=== PATIENT | male | born 1975 ===

== ENCOUNTER 2025-03-19 08:58 | Outpatient (AMB) | payer OTHER, SELFPAY ==
[2025-03-19 09:05] VITALS: BP 104/70; PULSE 70; O2SAT 96; BMI 32.9
--- NOTE | 2025-03-19 09:05 | MHC.OFFVIS ---
Vital Signs 03/19/25 09:05 Height 6 ft 3 in Weight 263 lb 0.183 oz BMI 32.9 BP 104/70 Blood Pressure Location Lt brachial Position Sitting Pulse 70 Pulse Source Pulse Oximeter Pulse Oximetry (%) 96 Oxygen Delivery Method Room Air Intake Visit Reasons: Low TSH Intake Note: NEW Patient presents today to establish care for Low TSH: Gas Substation Operator Required: No Accompanied by: Self / Same As Patient Allergies topiramate Allergy (Mild, Verified 03/19/25 09:09) Unknown Medication List - Last Reconciled 03/19/25 by Mumtaz Moran MD oxycodone 15 mg PO TID PRN pramipexole mg PO sildenafil mg PO testosterone (Testopel) mg implant tizanidine 4 mg PO BID HPI Comments Details: The patient is a 49 years old male with a history of low testosterone, depression, low back pain, and seasonal allergies, reported feeling unwell with symptoms of low motivation, low libido, and some weight gain in the past for which she was diagnosed with hypogonadism. He was started on Testopel (testosterone pellets), last inserted a couple of weeks ago by urology. During initial workup, the patient's TSH was normal low 2 occasions, and the patient is referred to us for evaluation. The patient denies experiencing heat intolerance, palpitations, tremors, anxiety, diarrhea, or unexpected weight loss. There is no family history of thyroid disease. The patient does not recall any recent illnesses or stressors that could have precipitated the symptoms. Occasional dizziness and blurred vision have been noted, but there are no significant headaches. Physical exam General: Well appearing. Neck/Thyroid: Thyroid not enlarged, no nodules. Eyes: No conjunctival injection, not lid lag or proptosis CV: RRR, no murmur. No edema. Resp:Lungs clear to auscultation bilaterally Abdomen: Soft, nontender. nondistended Extremities/Neuro: No weakness or tremor of outstretched hands Labs PFSH Medical History (Updated 03/19/25 @ 09:34 by Mumtaz Moran MD) Hx of allergic rhinitis Hx-hypospadias History of foot sprain History of depression Hx of insomnia Hx of low back pain Hx of seasonal allergies Hx of cardiac murmur Surgical History (Updated 03/19/25 @ 09:11 by WILLIAM Burnett) H/O foot surgery History of knee surgery History of hip surgery Family History (Updated 03/19/25 @ 09:11 by WILLIAM Burnett) Mother No problems noted. Father Diabetes Social History (Updated 03/19/25 @ 09:12 by WILLIAM Burnett) Alcohol intake: current Alcohol intake frequency: holidays/special occasions only Patient Tobacco Use Status: Current everyday Tobacco user Physical Exam Vital Signs: Last Vital Signs Pulse 70 03/19/25 09:05 BP 104/70 03/19/25 09:05 Pulse Ox 96 03/19/25 09:05 Oxygen Delivery Method Room Air 03/19/25 09:05 BMI result Body Mass Index 32.9 Assessment & Plan Assessment & Plan (1) Abnormal thyroid function test: Code(s): R94.6 - Abnormal results of thyroid function studies Category: Medical Plan: Abnormal thyroid function tests Patient has not had true abnormal thyroid function tests, he does have borderline normal TSH, other it is not a free T4 for reference. Patient does not seem to have any symptoms concerning for hyper or hypothyroidism at the time of my encounter or before per review of symptoms. Discussed with the patient the physiology of thyroid function, emphasizing on the symptoms for hyper or hypothyroidism Discussed with the patient rationale for repeating thyroid function tests including free T4 Advised the patient to monitor for symptoms of hypothyroidism (2) Hypogonadism in male: Code(s): E29.1 - Testicular hypofunction Category: Medical Plan Hypogonadism Unclear etiology for hypogonadism Labs seen on documents sent from primary care were normal, but patient was already started on testosterone pellets by Urology. He currently does not seem to have any symptoms concerning for hypogonadism Given the history of borderline low TSH and hypogonadism, we will add FSH and LH to rule out pituitary disease. Advised the patient that the best time for obtaining a physician and lays is at the end of the life of the pellets as decreased testosterone we will normally will lead to a feedback elevation of FSH and LH. Orders: Orders Follicle Stimulating Hormone Today E29.1 - Testicular hypofunction, R94.6 - Abnormal results of thyroid function studies Lutenizing Hormone Today E29.1 - Testicular hypofunction, R94.6 - Abnormal results of thyroid function studies TSH reflex Free T4 Today E29.1 - Testicular hypofunction, R94.6 - Abnormal results of thyroid function studies Coding Level of Care Code New Pt Level 4 (86933) Diagnoses Abnormal thyroid function test R94.6 Hypogonadism in male E29.1 Time Spent (min) 45 Comment Time spent on review of previous records, history, exam/plan and patient education.
--- OUTSIDE RECORDS SUMMARY | 2025-03-19 09:33 | XMS_ITS | Clinical Summary ---
Author Organization [facility] [address] [facility] Address [address] [place] [address] Phone Care Team Providers Care Television Host Name Role Phone Anug Singh NP Primary Care Provider [phone] Social History Tobacco Use Types Packs/Day Years Used Date Smoking Tobacco: Never Assessed Sex and Gender Information Value Date Recorded Sex Assigned at Not on file Legal Sex Male 11:06 AM EST Gender Identity Not on file Sexual Orientation Not on file Plan of Treatment Health Maintenance Due Date Last Done Comments DTaP,Tdap,and Td Vaccines (1 - Tdap) 1993 Hepatitis B Vaccines (1 of 3 - 19+ 3-dose series) 1993 Depression Screening 06/20/2024 Cholesterol Screening (Lipid Panel) 06/28/2024 Colorectal Cancer Screening: Colonoscopy 06/28/2024 HIV Screening 06/28/2024 Hepatitis C Screening 06/28/2024 Social Influencers of Health Screening 06/28/2024 Pneumococcal Vaccine: 50+ Ye ars (1 of 1 - PCV) 2024 Zoster Vaccines (1 of 2) 2024 COVID-19 Vaccine ( - 2023-2 5 season) 2025 Influenza Vaccine (#1) 2025 HIB Vaccines Aged Out No longer eligi ble based on patient's age to complete this topic HPV Vaccines Aged Out No longer eligi ble based on patient's age to complete this topic Hepatitis A Vaccines Aged Out No long er eligible based on patient's age to complete this topic IPV Vaccines Aged Out No longer eligi ble based on patient's age to complete this topic MMR Vaccines Aged Out No longer eligi ble based on patient's age to complete this topic Meningococcal ACWY Vaccine Aged Out N o longer eligible based on patient's age to complete this topic Meningococcal B Vaccine Aged Out No l onger eligible based on patient's age to complete this topic RSV Immunization Patients Un tasha 20 months Aged Out No longer eligible b ased on patient's age to complete this topic Varicella Vaccines Aged Out No longer eligible based on patient's age to complete this topic Insurance [facility] Care Teams Television Host Relationship Specialty Start Date End Date Aung Singh NP [address] [place], [place] PCP - General Nurse Practitioner 06/28/24
--- OUTSIDE RECORDS SUMMARY | 2025-03-19 09:33 | XMS_ITS | Encounter Summary ---
Author Organization [facility] Address [address] [place] [address] Care Team Providers Care Manager Therapy Name Role Phone Rory Singhjeri RABAGO Primary Care Provider [phone] Encounter Details Date Type Department Care Team (Late st Contact Info) Description 11/09/2024 Lab Requisition [facility] - Main Lab [address] [facility] [place] [address] Ward Hall MD [address] [place] [address] Testicular hypofunction Social History Tobacco Use Types Packs/Day Years Used Date Smoking Tobacco: Never Assessed Sex and Gender Information Value Date Recorded Sex Assigned at Not on file Legal Sex Male 11:06 AM EST Gender Identity Not on file Sexual Orientation Not on file documented as of this encounter Plan of Treatment Not on file documented as of this encounter Procedures Procedure Name Priority Date/Time Associated Diagnosis Comments TESTOSTERONE FREE, BIOAVAILABLE AND TOTAL Routine 11/09/2024 9:22 AM EDT Testicular hypofunction documented in this encounter Results * Testosterone free, bioavailable and total (11/09/2024 9:22 AM EDT) Testosterone 486 229 - 902 ng/dL LAB CHEMISTRY METHOD 11/09/2024 2:[address] [facility] Testosterone, Free 6.6 4.6 - 22.4 ng/dL LAB CHEMISTRY METHOD 11/09/2024 2:[address] [facility] Testosterone, Bioavailable 158 110 - 575 ng/dL LAB CHEMISTRY METHOD 11/09/2024 2:[address] [facility] Sex Hormone Binding 60.6 See Comment nmol/L LAB CHEMISTRY METHOD 11/09/2024 2:[address] [facility] Comment: FEMALES: pre-menopausal 10.8 - >180 post-menopausal 23.2 - 159.1 MALES: 21-49 years 14.6 - 94.6 50-89 years 21.6 - 113.1 CHILDREN: No established reference range Over the counter supplements containing high doses of biotin may interfere with this assay. If interference is suspected, patients should be retested after refraining from biotin supplements for 72 hours. Albumin 4.4 3.2 - 5.0 g/dL LAB CHEMISTRY METHOD 11/09/2024 2:[address] [facility] Blood Venous blood specimen / Unknown 11/09/2024 9:22 AM EDT 11/09/2024 11:38 AM EDT us Ward Hall MD LAB BLOOD ORDERABLES Final Resu lt [facility] [address] [place] [address], documented in this encounter Visit Diagnoses Diagnosis Testicular hypofunction Other testicular hypofunction documented in this encounter Care Teams Manager Therapy Relationship Specialty Start Date End Date Aung Singh NP [address] [place] [address] [address] [place], [place] PCP - General Nurse Practitioner 06/28/24 documented as of this encounter
--- OUTSIDE RECORDS SUMMARY | 2025-03-19 09:33 | XMS_ITS | Encounter Summary ---
Author Organization [facility] Address [address] [place] [address] Care Team Providers Care Paint Roller Covers Supervisor Name Role Phone Francisco Aung RABAGO Primary Care Provider [phone] Encounter Details Date Type Department Care Team (Late st Contact Info) Description 11/08/2024 Lab Requisition [facility] - Main Lab [address] [facility] [employer] [address] Ward Hall MD [address] [place] [address] Testicular hypofunction Social History Tobacco [...] Procedure Name Priority Date/Time Associated Diagnosis Comments COMPLETE BLOOD COUNT Routine 11/08/2024 9:22 AM EDT Testicular hypofunction documented in this encounter Results * (ABNORMAL) Complete blood count (11/08/2024 9:22 AM EDT) WBC 5.8 4.8 - 10.8 K[facility] LAB HEMETOLOGY METHOD 11/08/2024 1:[address] [facility] RBC 5.90(H) 4.50 - 5.50 M/[facility] LAB HEMETOLOGY METHOD 11/08/2024 1:[address] [facility] Hemoglobin 18.4(H) 13.5 - 17.5 g/dL LAB HEMETOLOGY METHOD 11/08/2024 1:[address] [facility] Hematocrit 53.8 42.0 - 54.0 % LAB HEMETOLOGY METHOD 11/08/2024 1:[address] [facility] MCV 91.3 79.0 - 98.0 FL LAB HEMETOLOGY METHOD 11/08/2024 1:[address] [facility] MCH 31.2 27.0 - 32.0 pcg LAB HEMETOLOGY METHOD 11/08/2024 1:[address] [facility] MCHC 34.2 32.0 - 37.0 g/dL LAB HEMETOLOGY METHOD [facility] RDW 12.6 11.0 - 15.0 % LAB HEMETOLOGY METHOD 11/08/2024 1:[address] [facility] Platelets 178 130 - 400 K/mcL LAB HEMETOLOGY METHOD 11/08/2024 1:[address] [facility] MPV 10.2 7.0 - 11.0 FL LAB HEMETOLOGY METHOD [facility] NRBC 0.0 <1.0 % LAB HEMETOLOGY METHOD 11/08/2024 1:[address] [facility] NRBC Absolute 0.00 <0.10 K/mcL LAB HEMETOLOGY METHOD 11[facility]08[facility] Blood Venous blood specimen / Unknown 11/08/2024 9:22 AM EDT 11/08/2024 12:55 PM EDT us Ward Hall MD LAB BLOOD ORDERABLES Final Resu lt [facility] [address] [place] [address], documented in this encounter Visit Diagnoses Diagnosis Testicular hypofunction Other testicular hypofunction documented in this encounter Care Teams Paint Roller Covers Supervisor Relationship Specialty Start Date End Date Aung Singh NP [address] [place] [address] Rd [address] [place], [place] PCP - General Nurse Practitioner 06/28/24 documented as of this encounter
--- OUTSIDE RECORDS SUMMARY | 2025-03-19 09:33 | XMS_ITS | Clinical Summary ---
Author Organization [facility] [employer] [facility] Address [address] [place] [address] Care Team Providers Care Building Consultant Name Role Phone Pcp, No Primary Care Provider [phone] Social History Tobacco Use Types Packs/Day Years Used Date Smoking Tobacco: Never Assessed Sex and Gender Information Value Date Recorded Sex Assigned at Not on file Legal Sex Male 7:38 PM EDT Gender Identity Not on file Sexual Orientation Not on file Plan of Treatment Health Maintenance Due Date Last Done Comments Colorectal Cancer: COLONOSCO PY Screening every 10 yrs (or Modifier) 1974 Depression: Screening Annual ly using PHQ-2/9 in Adults 18 yrs or above (or HM Modifier)([facility]) 1992 Hepatitis C Virus Infection in Adolescents and Adults: Screening (or Modifier) ([facility]) 1992 [facility] Screening Reminder: Belkys cobos for all adults ([facility]) 1992 Tobacco Smoking Cessation: i n Adults excluding Women: Behavioral and Pharmacotherapy Interventions ([facility]) 1992 DTaP/Tdap/Td Vaccines ([facility]) (1 - Tdap) 1993 Colorectal Cancer Screening 45 -75 Yrs (or HM Modifier ) 10/03/2019 Colorectal Cancer: FLEXIBLE SIGMOIDOSCOPY Screening every 5 yrs 10/03/2019 Colorectal Cancer: Fecal Imm unochemical Test (FIT) Annually [facility] 10/03/2019 Colorectal Cancer: High-sens itivity gFOBT Screening Annually [facility] 10/03/2019 Colorectal Cancer: Stool Col oguard Screening every 3 yrs 10/03/2019 Colorectal Cancer:CT Colonography Screening every 5 yr s 10/03/2019 Pneumococcal Vaccination Scr eening: Patients 50+ yrs of age ([facility]) (1 of 1 - PCV) 2024 Zoster/Shingles Vaccine Seri es Screening: Adults aged 18+ yrs (or HM Modifiers)([facility]) (1 of 2) 2024 Flu Vaccination: Yearly for ages 18mos through 64 years (or Modifier)([facility]) 01/18/2025 COVID-19 Vaccine Screening: Initial Series and Booster Status ([facility]) (2023- season) 2025 [employer] Not on file Insurance Care Teams Building Consultant Relationship Specialty Start Date End Date Pcp, No PCP - General Family Medicine 02/21/20
== END 2025-03-19 11:08 | disposition home or self-care (01) ==
LOC: HO.ENCR 08:59
PROVIDERS: PCP Internal Medicine; Visit Provider Student in an Organized Health Care Education/Training Program
DX: R94.6 Abnormal results of thyroid function studies (principal); E29.1 Testicular hypofunction
CPT/HCPCS: 99204

== ENCOUNTER 2025-06-11 11:30 | Outpatient (AMB) | payer OTHER, SELFPAY ==
--- OUTSIDE RECORDS SUMMARY | 2025-06-05 23:59 | XMS_ITS | Continuity of Care Document ---
Author Organization [facility] Address [address] [place] [address]- Care Team Providers Care Jigger Operator Name Role Phone Parminder PIKE, Sandro Pepe Primary Care Physician [id number] Date(s): 05/06/25 - 06/05/[address] [id number] Attending Physician: Fatou Clifton Admitting Physician: Fatou Clifton Referring Physician: Fatou Clifton Encounter Type: Triage Allergies, Adverse Reactions, Alerts No Known Medication Allergies Immunizations Given and Recorded Vaccine Date Status Refusal Reason tetanus/diphtheria/pertussis, acel(Tdap) 04/14/24 Given Medications Celecoxib By Mouth, 2 times a day, 0 Refills, Maintenance, 03/11/18 4:51:52 PM EDT Start Date: 03/11/18 Status: Ordered Medication Dispense Status: Completed Total Allowed Fills: 1 Fills Dispensed: 0 Famciclovir By Mouth, 0 Refills, Maintenance, 03/11/18 4:51:17 PM EDT Start Date: 03/11/18 Status: Ordered Medication Dispense Status: Completed Total Allowed Fills: 1 Fills Dispensed: 0 famotidine 40 mg oral tablet 1 tablet = 40 mg, By Mouth, Daily at bedtime, # 30 tablet, 0 Refills, Maintenance, 03/11/18 6:48:06 PM EDT, Tablet Start Date: 03/11/18 Status: Ordered Medication Dispense Status: Completed Quantity: 30.0 Unit: tablet Total Allowed Fills: 1 Fills Dispensed: 0 oxyCODONE 10 mg oral tablet 1 tablet = 10 mg, By Mouth, Every 8 hours, PRN as needed for pain, 0 Refills, Maintenance, 03/11/18 4:50:28 PM EDT, Tablet Start Date: 03/11/18 Status: Ordered Medication Dispense Status: Completed Total Allowed Fills: 1 Fills Dispensed: 0 pramipexole 0.5 mg oral tablet See Instructions, takes 1-2 @ HS, 5 Refills, Maintenance, 10/01/24 11:02:00 AM EDT, Tablet, Partial fill upon patient request if the prescription is for a schedule II opioid drug. Start Date: 10/01/24 Status: Ordered Medication Dispense Status: Completed Total Allowed Fills: 1 Fills Dispensed: 0 QUEtiapine 25 mg oral tablet 25 mg, 1, tablet, By Mouth, Daily at bedtime, # 30 tablet, Refills 0, Maintenance, 10/01/24 11:02:00AM EDT, Partial fill upon patient request if the prescription is for a schedule II opioid drug. Start Date: 10/01/24 Status: Ordered Medication Dispense Status: Completed Quantity: 30.0 Unit: tablet Total Allowed Fills: 1 Fills Dispensed: 0 tiZANidine 4 mg oral capsule See Instructions, One at HS, 0 Refills, Maintenance, 10/01/24 11:03:00 AM EDT, Partial fill upon patient request if the prescription is for a schedule II opioid drug. Start Date: 10/01/24 Status: Ordered Medication Dispense Status: Completed Total Allowed Fills: 1 Fills Dispensed: 0 Problem List Condition Confirmation Course Effective Dates Status Health St atus Informant Obese class II Confirmed Active Social History Social History Type Response Smoking Status Former smoker entered on: 07/15/15 Sex Sex Representation Male (finding) Patient Care team information Care Team Personnel Name: Sandro Zurita MD Position: S Physician - Primary Care Member Role: PCP Address: [address] [place] [address], [facility] [address] Telecom: Care Team Related Persons Name: GEOVANNA DOUGLAS Insurance Providers Guarantor name: LAURENT DOUGLAS Health Plan Information #: 1 Payer: [facility] Payer Identifier: NA Member Number: [id number] Group Number: [id number] Subscriber Identifier: NA Relationship to Subscriber: self Coverage Type: NA Coverage Verification Date: NA Telecom: NA Address: NA
--- NOTE | 2025-06-11 11:34 | MHC.OFFVIS ---
Vital Signs 06/11/25 11:35 Height 6 ft 3 in Weight 250 lb BMI 31.2 BP 132/86 Blood Pressure Location Rt brachial Position Sitting Pulse 58 Pulse Source Pulse Oximeter Pulse Oximetry (%) 96 Oxygen Delivery Method Room Air Intake Visit Reasons: Abnormal thyroid function test Intake Note: Patient presents here today for a follow-up after completion of workup labs: Thyroid Function Test: Completed on 06/06/2025 at [facility] Automobile Repair Service Estimator Required: No Accompanied by: Self / Same As Patient Allergies topiramate Allergy (Mild, Verified 06/11/25 11:50) Unknown HPI Comments Details: The patient is a 49 years old male with a history of low testosterone, depression, low back pain, and seasonal allergies, reported feeling unwell with symptoms of low motivation, low libido, and some weight gain in the past for which she was diagnosed with hypogonadism. He was started on Testopel (testosterone pellets), last inserted a couple of weeks ago by urology. During initial workup, the patient's TSH was normal low 2 occasions, and the patient is referred to us for evaluation. The patient denies experiencing heat intolerance, palpitations, tremors, anxiety, diarrhea, or unexpected weight loss. There is no family history of thyroid disease. The patient does not recall any recent illnesses or stressors that could have precipitated the symptoms. Occasional dizziness and blurred vision have been noted, but there are no significant headaches. Interval history: Sporadic palpitation No other symptoms concerning for hyperthyroidism Physical exam General: Well appearing. Neck/Thyroid: Thyroid not enlarged, no nodules. Eyes: No conjunctival injection, not lid lag or proptosis CV: RRR, no murmur. No edema. Resp:Lungs clear to auscultation bilaterally Abdomen: Soft, nontender. nondistended Extremities/Neuro: No weakness or tremor of outstretched hands Labs PFSH Medical History (Updated 03/19/25 @ 09:34 by Mumtaz Moran MD) Hx of allergic rhinitis Hx-hypospadias History of foot sprain History of depression Hx of insomnia Hx of low back pain Hx of seasonal allergies Hx of cardiac murmur Surgical History (Updated 03/19/25 @ 09:11 by WILLIAM Burnett) H/O foot surgery History of knee surgery History of hip surgery Family History (Updated 03/19/25 @ 09:11 by WILLIAM Burnett) Mother No problems noted. Father Diabetes Social History (Updated 03/19/25 @ 09:12 by WILLIAM Burnett) Alcohol intake: current Alcohol intake frequency: holidays/special occasions only Patient Tobacco Use Status: Current everyday Tobacco user Physical Exam Vital Signs: Last Vital Signs Pulse 58 06/11/25 11:35 BP 132/86 06/11/25 11:35 Pulse Ox 96 06/11/25 11:35 Oxygen Delivery Method Room Air 06/11/25 11:35 BMI result Body Mass Index 31.2 Assessment & Plan Assessment & Plan (1) Abnormal thyroid function test: Code(s): R94.6 - Abnormal results of thyroid function studies Category: Medical Plan: Abnormal thyroid function tests Patient has not had true abnormal thyroid function tests, he does have borderline normal TSH, but there is not a free T4 for reference. Patient does not seem to have any symptoms concerning for hyper or hypothyroidism at the time of my encounter or before per review of symptoms. Repeated TSH again normal 04/2025. Clinically euthyroid. Discussed with the patient that given that his TFTs did not show any abnormality and that he is clnically euthyroid, we will not recommend further endocrine follow up. His LH and FSH are suppressed likely in the setting of Testosterone replacement. (2) Hypogonadism in male: Code(s): E29.1 - Testicular hypofunction Category: Medical Plan: Hypogonadism Unclear etiology for hypogonadism Labs seen on documents sent from primary care were normal, but patient was already started on testosterone pellets by Urology. He currently does not seem to have any symptoms concerning for hypogonadism Given the history of borderline low TSH and hypogonadism, we will add FSH and LH to rule out pituitary disease. Advised the patient that the best time for obtaining a physician and lays is at the end of the life of the pellets as decreased testosterone we will normally will lead to a feedback elevation of FSH and LH. Plan 30 minutes spent reviewing previous records, labs, imaging, education and documenting in the chart Coding Level of Care Code Est Pt Level 3 (67138) Add On Problem Visit Only Diagnoses Abnormal thyroid function test R94.6 Hypogonadism in male E29.1
[2025-06-11 11:35] VITALS: BP 132/86; PULSE 58; O2SAT 96; BMI 31.2
--- OUTSIDE RECORDS SUMMARY | 2025-06-11 12:54 | XMS_ITS | Encounter Summary ---
Author Organization [facility] Address [address] [place] [address] Care Team Providers Care Crop Setting Out Machine Operator Name Role Phone Rory Singhjeri RABAGO Primary Care Provider [phone] Encounter Details Date Type Department Care Team (Late st Contact Info) Description 11/09/2024 Lab Requisition [facility] - Main Lab [address] [facility] [employer] [place] [address] Ward Hall MD [address] [place] [address] Testicular hypofunction Social History Tobacco [...] LAB CHEMISTRY METHOD 11/09/2024 2:11 PM EDT [facility] Testosterone, Free 6.6 4.6 - 22.4 ng/dL LAB CHEMISTRY METHOD 11/09/2024 2:11 PM EDT [facility] Testosterone, Bioavailable 158 110 - 575 ng/dL LAB CHEMISTRY METHOD 11/09/2024 2:11 PM EDT [facility] Sex Hormone Binding 60.6 See Comment nmol/L LAB CHEMISTRY METHOD 11/09/2024 2:11 PM EDT [facility] Comment: FEMALES: pre-menopausal 10.8 - [...] LAB CHEMISTRY METHOD 11/09/2024 2:11 PM EDT [facility] Blood Venous blood specimen / Unknown 11/09/2024 9:22 AM EDT 11/09/2024 11:38 AM EDT us Ward Hall MD LAB BLOOD ORDERABLES Final Resu lt [facility] [address] [place] [address], documented in this encounter Visit Diagnoses Diagnosis Testicular hypofunction Other testicular hypofunction documented in this encounter Care Teams Crop Setting Out Machine Operator Relationship Specialty Start Date End Date Aung Singh NP [address] [place] [address] [address] [place], [place] PCP - General Nurse Practitioner 06/28/24 documented as of this encounter
--- OUTSIDE RECORDS SUMMARY | 2025-06-11 12:54 | XMS_ITS | Encounter Summary ---
Author Organization [facility] Address [address] [place] [address] Care Team Providers Care Director Of Residence Life Name Role Phone Francisco Aung RABAGO Primary Care Provider [phone] Encounter Details Date Type Department Care Team (Late st Contact Info) Description 11/08/2024 Lab Requisition [facility] - Main Lab [address] [facility] [place] [address] Ward Hall MD [address] [place] [address] Testicular hypofunction Social History Tobacco [...] AM EDT) WBC 5.8 4.8 - 10.8 [facility] LAB HEMETOLOGY METHOD 11/08/2024 1:02 PM EDT [facility] RBC 5.90(H) 4.50 - 5.50 M/[facility] LAB HEMETOLOGY METHOD 11/08/2024 1:02 PM EDT [facility] Hemoglobin 18.4(H) 13.5 - 17.5 g/dL LAB HEMETOLOGY METHOD 11/08/2024 1:02 PM EDT [facility] Hematocrit 53.8 42.0 - 54.0 % LAB HEMETOLOGY METHOD 11/08/2024 1:02 PM EDT [facility] MCV 91.3 79.0 - 98.0 FL LAB HEMETOLOGY METHOD 11/08/2024 1:02 PM EDT [facility] MCH 31.2 27.0 - 32.0 pcg LAB HEMETOLOGY METHOD 11/08/2024 1:02 PM EDT [facility] MCHC 34.2 32.0 - 37.0 g/dL LAB HEMETOLOGY METHOD [facility] RDW 12.6 11.0 - 15.0 % LAB HEMETOLOGY METHOD 11/08/2024 1:02 PM EDT [facility] Platelets 178 130 - 400 K/mcL LAB HEMETOLOGY METHOD 11/08/2024 1:02 PM EDT [facility] MPV 10.2 7.0 - 11.0 FL LAB HEMETOLOGY METHOD [facility] NRBC 0.0 <1.0 % LAB HEMETOLOGY METHOD 11/08/2024 1:02 PM EDT [facility] NRBC Absolute 0.00 <0.10 K/mcL LAB HEMETOLOGY METHOD 11/08[facility]24 [facility] Blood Venous blood specimen / Unknown 11/08/2024 9:22 AM EDT 11/08/2024 12:55 PM EDT us Ward Hall MD LAB BLOOD ORDERABLES Final Resu lt [facility] [address] [place] [address], documented in this encounter Visit Diagnoses Diagnosis Testicular hypofunction Other testicular hypofunction documented in this encounter Care Teams Director Of Residence Life Relationship Specialty Start Date End Date Aung Singh NP [address] [place] [address] Rd [address] [place], [place] PCP - General Nurse Practitioner 06/28/24 documented as of this encounter
--- OUTSIDE RECORDS SUMMARY | 2025-06-11 12:54 | XMS_ITS | Clinical Summary ---
Author Organization [facility] Address [address] [place] [address] Care Team Providers Care Stone Finisher Name Role Phone Unavailable Primary Care Provider Unavailabl e Medications aspirin 81 MG EC tablet 1 tablet oral twice a day Active famciclovir (FAMVIR) 500 MG tablet 1 tablet oral daily at bedtime Active famotidine (PEPCID) 40 MG tablet 1 tablet oral daily Active HYDROcodone-acetami nophen (NORCO) 5-325 mg per tablet 1-2 tablets oral every four hours PRN Reason: pain-severe Active ondansetron (ZOFRAN-ODT) 4 MG disintegrating tablet 1 tablet oral every six hours PRN Reason: nausea or vomiting Active pramipexole (MIRAPEX) 0.5 MG tablet 1 tablet oral daily at bedtime PRN Reason: restless legs Active QUEtiapine (SEROquel) 50 MG tablet 1 tablet oral daily at bedtime PRN Reason: insomnia Active Social History Tobacco Use Types Packs/Day Years Used Date Smoking Tobacco: Never Assessed Sex and Gender Information Value Date Recorded Sex Assigned at Not on file Legal Sex Male 11:18 PM EST Gender Identity Not on file Sexual Orientation Not on file Last Filed Vital Signs Vital Sign Reading Time Taken Comments Blood Pressure - - Pulse - - Temperature - - Respiratory Rate - - Oxygen Saturation - - Inhaled Oxygen Concentration - - Weight 109 kg (240 lb) 03/02/2023 1:30 PM EDT Height 190.5 cm (6' 3 ) 03/02/2023 1:30 PM EDT Entered Value: 6 ft 3 in Body Mass Index 30 03/02/2023 1:30 PM EDT Plan of Treatment Health Maintenance Due Date Last Done Comments Blood Pressure 1974 Lipid Panel 1974 PSA 1974 Prostate Cancer Screening 1974 SDM 1974 Depression Screening 1986 Hepatitis C Screening 1992 DTaP,Tdap,and Td Vaccines (1 - Tdap) 1993 CT Colonography 10/03/2019 Colonoscopy 10/03/2019 Colorectal Cancer Screening 10/03/2019 FIT 10/03/2019 FOBT 10/03/2019 Multitarget Stool DNA (Cologuard) 10/03/2019 Sigmoidoscopy 10/03/2019 Pneumococcal Vaccine: 50+ Ye ars (1 of 1 - PCV) 2024 Zoster Vaccine (1 of 2) 2024 COVID-19 Vaccine (1 - 2024-2 6 season) 2025 Influenza Vaccine (#1) 2025 Meningococcal B Vaccines Aged Out No longer eligible based on patient's age to complete this topic Meningococcal Vaccines Aged Out No lo nger eligible based on patient's age to complete this topic
--- OUTSIDE RECORDS SUMMARY | 2025-06-11 12:54 | XMS_ITS | Clinical Summary ---
Author Organization [facility] [address] [facility] Address [address] [place] [address] Phone Care Team Providers Care Template Clerk Name Role Phone Aung Singh NP Primary Care Provider [phone] Social History Tobacco Use Types Packs/Day Years Used Date Smoking Tobacco: Never Assessed Sex and Gender Information Value Date Recorded Sex Assigned at Not on file Legal Sex Male 11:06 AM EST Gender Identity Not on file Sexual Orientation Not on file Plan of Treatment Health Maintenance Due Date Last Done Comments Colorectal Cancer Screening: Colonoscopy 1974 DTaP,Tdap,and Td Vaccines (1 - Tdap) 1993 Hepatitis B Vaccines (1 of 3 - 19+ 3-dose series) 1993 Depression Screening 06/20/2024 Cholesterol Screening (Lipid Panel) 06/28/2024 HIV Screening 06/28/2024 Hepatitis C Screening 06/28/2024 Social Influencers of Health Screening 06/28/2024 Pneumococcal Vaccine: 50+ Ye ars (1 of 1 - PCV) 2024 Zoster Vaccines (1 of 2) 2024 COVID-19 Vaccine ( - 2024-2 6 season) 2025 Influenza Vaccine (#1) 2025 RSV Immunization Adult Patie nts (1 - 1-dose 75+ series) 2049 HIB Vaccines Aged Out No longer eligi [...] patient's age to complete this topic Insurance [facility] Care Teams Template Clerk Relationship Specialty Start Date End Date Aung Singh NP [address] [facility] [address] [place], [place] PCP - General Nurse Practitioner 06/28/24
== END 2025-06-11 12:11 | disposition home or self-care (01) ==
LOC: HO.ENCR 11:31
PROVIDERS: PCP Internal Medicine; Visit Provider Student in an Organized Health Care Education/Training Program
DX: R94.6 Abnormal results of thyroid function studies (principal); E29.1 Testicular hypofunction
CPT/HCPCS: 99213